=== PATIENT | male | born 1965 | race Caucasian/White ===

== ENCOUNTER → 2019-02-08 | Outpatient (CLI) | payer SELFPAY ==
[~2019-02-08] MED LIST: ASCO500T2 PO; AZEL137S3 NS; AZIT250T6 PO; CALC500T54 PO; COD1CAPS2 PO; DGL; DOCU-109 PO; HYDR-3164 PO; IBUP200C9 PO; METH-38 PO; WHITE WILLOW BARK PO; ZINC30CA PO
[2019-02-08 10:28] LABS: BASO % 0 % (0-3); EOS # 0.1 x10^3/uL (0.0-0.7); EOS % 1 % (0-3); HEMATOCRIT 48.4 % (39.0-53.0); HEMOGLOBIN 16.5 g/dL (13.0-17.5); LYMPH # 1.4 x10^3/uL (1.0-4.8); LYMPH % 13 % (24-48); MEAN CORPUSCULAR HEMOGLOBIN 32 pg (25-35); MEAN CORPUSCULAR HGB CONC 34 g/dL (31-37); MEAN CORPUSCULAR VOLUME 93 fL (79-100); MONO # 0.5 x10^3/uL (0.0-1.1); MONO % 4 % (0-9); NEUT # 8.9 x10^3uL (1.8-7.7); NEUT % 82 % (31-73); PLATELET COUNT 313 x10^3/uL (140-400); RED CELL DISTRIBUTION WIDTH 12.6 % (11.5-14.5); WHITE BLOOD COUNT 10.9 x10^3/uL (4.0-11.0)
[2019-02-08 10:46] LABS: ALBUMIN 4.1 g/dL (3.4-5.0); CALCIUM 9.6 mg/dL (8.5-10.1); CREATININE 0.9 mg/dL (0.7-1.3); POTASSIUM 4.6 mmol/L (3.5-5.1); TOTAL BILIRUBIN 0.4 mg/dL (0.2-1.0); TOTAL PROTEIN 8.4 g/dL (6.4-8.2)
== END | disposition home or self-care (01) ==
LOC: SURGPAT 09:17
PROVIDERS: ATTEND Neurological Surgery
DX: M51.16 Intervertebral disc disorders with radiculopathy, lumbar region (principal); M21.372 Foot drop, left foot
CPT/HCPCS: 36415; 80053; 85025; 87641

== ENCOUNTER 2019-02-23 07:09 | Day surgery (SDC) | payer SELFPAY ==
--- NOTE | 2019-02-22 15:22 | PREOP HP ---
DATE OF SERVICE: 02/23/2019 HISTORY OF PRESENT ILLNESS: The patient is a pleasant 53-year-old who is having difficulty with left buttock and left pain in the hip along with pain which is primarily in his left lateral leg. He notes his left foot is weak. The problem started spontaneously about one month ago. He says if he sits or lies down he has no pain. However, standing or walking for more than about 15 minutes, he develops significant pain and must sit to gain relief. He has been taking Advil. He has chiropractic treatments almost every day, which have helped only temporarily. PAST MEDICAL HISTORY: Headaches, migraines, stomach and intestinal disease, diverticulitis. PAST SURGICAL HISTORY: ACL repair in 1993. FAMILY HISTORY: Cancer, heart problems and disease. SOCIAL HISTORY: Employed as a warehouse production worker. . Exercises daily. Denies substance abuse. Denies alcohol abuse. Drinks alcohol 1-2 times per year. Drinks tea daily. ALLERGIES: No known drug allergies. CURRENT MEDICATIONS: Calcium, magnesium, zinc and vitamin D3, grape seed extract, vitamin C, cod liver oil, white willow bark and Advil. REVIEW OF SYSTEMS: A 12-point review of systems was obtained and is noncontributory except for that mentioned above. PHYSICAL EXAMINATION: NEUROSURGERY EXAMINATION: GENERAL APPEARANCE: Alert, pleasant, no acute distress. HEAD: Normocephalic, atraumatic. SKIN: Warm and dry. MUSCULOSKELETAL: Lumbar paraspinal muscle bulk is normal, restricted range of motion of lumbar spine, [id number] tenderness of lower lumbar spine with palpation, normal range of motion of the lower extremities bilaterally. EXTREMITIES: No clubbing, cyanosis or edema. NEUROLOGIC: Alert and oriented x 3, normal recent and remote memory. Strength 2/5 in bilateral lower extremities, decreased sensation in the anterior lateral leg and dorsum left foot, reflexes are present and symmetric in lower extremities bilaterally, positive straight leg raising on the left, left thigh and leg pain, antalgic gait. IMAGING: I reviewed a lumbar MRI scan. On that study, the principal problems are at L4-L5 where there is a broad-based disk bulging with bilateral neuroforaminal narrowing and lateral recess stenosis. ASSESSMENT: 1. Intervertebral disk disorders with radiculopathy, lumbar region. 2. Footdrop, left foot. PLAN: Clearly, the problems on the left side at L4-L5 are most likely responsible for his pain. I spoke with him about the treatment options. He has had a considerable amount of rest as well as chiropractic treatment on basically a daily basis. He is not able to work because of severe pain. I discussed epidural steroid injections and he has no interest in these. I spoke about the surgery and he would like to go forward with lumbar microsurgery at this time on the left at L4-L5. I explained that in the future he could have problems on the right side as well. He understands the risks. He would like to go ahead. We will make the arrangements. NELLIE DE LEON MD DR: JUSTIN/hermelinda JOB#: [id number] / [id number] FAROOQ
[~2019-02-23] VITALS: Ht 163.8 cm; Wt 82.1 kg
[~2019-02-23 07:09] MED LIST changes: +BACITRACIN 50,000 UNIT in IV NORMAL SALINE 1000ML BAG 1,000 ML IRR ONE; +BUPIVAC MPF-EPI 0.5%-1:200000 30 ML VIAL. ONE; -DOCU-109 PO; +GELATIN SPONGE SIZE 100. ONE; -HYDR-3164 PO; +HYDROmorphone 2 MG/ML VIAL IV PRN; +IV RINGERS,LACTATED 1000ML 1,000 ML IV SCH; +KETOROLAC 60 MG/2 ML INJ FOR OR. ONE; +LIDOCAINE 1% PF 2 ML VIAL. ID PRN; -METH-38 PO; +MORPHINE SULFATE 2 MG/ML VIAL. IV PRN; +PROCHLORPERAZINE 10 MG/2 ML VIAL. IV PRN; +THROMBIN TOPICAL 20,000 UNIT SPRAY.SYRN KIT TP ONE; +fentaNYL PF VIAL 100 MCG/2 ML VIAL IV PRN
[2019-02-23] MEDS ORDERED: ceFAZolin 2GM PREMIX 2 GM/50 ML BAG IV ONE (08:00)
[2019-02-23] MEDS ORDERED: MIDAZOLAM HCL/PF 2 MG/2 ML VIAL. ONE (08:25)
[2019-02-23] MEDS ORDERED: REMIFENTANIL 2 MG VIAL. IV ONE (08:25)
[2019-02-23] MEDS ORDERED: ROCURONIUM 50 MG/5 ML VIAL. ONE (08:25)
[2019-02-23] MEDS ORDERED: LIDOCAINE 2% PF 5 ML VIAL. ONE (08:26)
[2019-02-23] MEDS ORDERED: PROPOFOL 50 ML IV ONE (08:26)
[2019-02-23] MEDS ORDERED: DEXAMETHASONE SOD PHOS 20 MG/5 ML VIAL. ONE (08:26)
[2019-02-23] MEDS ORDERED: PROPOFOL 20 ML IV ONE (08:26)
[2019-02-23] MEDS ORDERED: ONDANSETRON PF 4 MG/2 ML VIAL. ONE (08:26)
[2019-02-23] MEDS ORDERED: fentaNYL PF VIAL 250 MCG/5 ML VIAL ONE (08:26)
[2019-02-23] MEDS ORDERED: DOCU-109 PO (09:28)
[2019-02-23] MEDS ORDERED: METH-38 PO (09:28)
[2019-02-23] MEDS ORDERED: HYDR-3164 PO (09:28)
[2019-02-23] MEDS ORDERED: PHENYLEPHRINE in 0.9% NACL PF 1 MG/10 ML SYRINGE. IV ONE (09:29)
--- NOTE | 2019-02-23 09:29 | DISCH ---
DISCHARGE INSTRUCTIONS Condition on Discharge Condition on Discharge: Stable Activity After Discharge Activity Instructions for Disc: Activity as tolerated, Avoid exertion Other activity instructions: no driving for a week Bathing Instructions: Shower-keep dressing dry Lifting Instructions after Dis: No heavy lifting, No pulling or pushing, Do not lift >10 pounds Diet after Discharge Additional Diet Restrictions: resume home diet Wound Incision Care Wound/Incision Care: Ice to area for comfort Other wound/incision instructi: may remove dressing in 48 hrs if dry then may shower, no soaking Contacting the after DC Call your doctor for: Concerns you may have Follow-Up Follow up with: Dr. De Leon's nurse in 2 weeks [phone] NELLIE DE LEON MD Feb 23, 2019 09:29
[2019-02-23] MEDS ORDERED: GLYCOPYRROLATE 1 MG/5 ML VIAL. ONE (10:38)
[2019-02-23] MEDS ORDERED: NEOSTIGMINE METHYLSULFATE 5 MG/5 ML SYRINGE. ONE (10:38)
[2019-02-23] MEDS ORDERED: DESFLURANE > 120 MINUTES IH ONE (10:49)
[2019-02-23] MEDS ORDERED: HYDROcodone/APAP 5/325MG 1 TAB TABLET PO ONE ×2 (11:30)
[2019-02-23 12:18] VITALS: BP 138/75
--- NOTE | 2019-02-23 12:59 | OP ---
DATE OF SURGERY: 02/23/2019 PREOPERATIVE DIAGNOSES: Stenosis and herniated lumbar disc, L4-L5, left with left lumbar radiculopathy. POSTOPERATIVE DIAGNOSES: Stenosis and herniated lumbar disc, L4-L5, left with left lumbar radiculopathy. OPERATION PERFORMED: Hemilaminotomy and microdiscectomy, L4-L5, left. SURGEON: Joel De Leon M.D. FIREFIGHTING EQUIPMENT SPECIALIST: GEO Schulte, assisted with the surgery. She assisted with the exposure, the microdiscectomy and decompression as well as the closure. OPERATIVE INDICATIONS: The patient is a pleasant 53-year-old man who developed intractable back and left leg pain along with weakness with left foot dorsiflexion, which failed conservative measures. On the imaging studies, he had the above-mentioned findings and I recommended lumbar microsurgery. I spoke with him about the surgery, the risks, technique and the expected postoperative course. The surgery was slightly delayed because of illness, but he presented today, feeling very well and an unchanged, moderately severe left leg pain. I spoke with him about the surgery and the technique and the expected postoperative course and he wished to go ahead. DESCRIPTION OF PROCEDURE: Following general endotracheal anesthesia, the patient was positioned prone on the Espinoza table. Lumbar region was prepped and draped in standard fashion. STUART hose and AV impulse boots were applied for DVT prophylaxis. A microscope was draped. Fluoroscopy was draped and brought into the field. Monitoring was established. Ancef 2 grams was given less than 1 hour prior to initiation of the surgery. Using fluoroscopic guidance, a midline incision was made over the L4-L5 interspace that was taken down to the skin and subcutaneous tissue. I reflected the paraspinal muscles and placed a [place] microdisk retractor. I brought in the microscope and using the high-speed air drill, I burred down a hemilaminotomy and worked to the midline. I then trimmed away very thickened ligamentum flavum. Inferiorly, the ligament was very thick and markedly compressing the nerve at and just below the disc space. I performed a generous partial foraminotomy. I removed the ligament and fully decompressed above and below the disc and then I gently retracted the root medially. There was some pressure . The disc was bulging and I incised the ligament annulus and I performed discectomies, first with the micro pituitaries, followed by the Santino pituitary. On palpating with a blunt hook, there was some subligamentous disc, which I teased up from inferiorly and removed. As I worked, the entire region became very well decompressed. There were moderate degenerative changes within the ligamentum flavum and I removed all of this material and decompressed well. I irrigated copiously with antibiotic solution. I explored carefully. The region was very well decompressed and the root was very free and mobile. I irrigated copiously, obtained perfect hemostasis, removed the retractor, obtained hemostasis of the muscle, irrigated again and then closed the wound in layers with absorbable sutures. The skin was closed with a 4-0 subcuticular stitch. I felt that the surgery went well. JOEL DE LEON MD DR: UJSTIN/hermelinda JOB#: [id number] / [id number] FAROOQ
--- NOTE | 2019-02-26 18:06 | PATHOLOGY ---
[facility] Accession Number: [id number] . 01 Material submitted: . vertebral column - LUMBAR DISC AND DECOMPRESSION . 01 Clinical history: . Foot drop, lumbar herniated disc with radiculopathy . 02 Diagnosis: Segments of fibrocartilaginous, adipose, and skeletal muscle tissue and bone, lumbar disc and decompression: - Degenerative changes of fibrocartilaginous tissue. (JPM:parts professional; 02/26/2019) MBR/02/26/2019 . 02 Comment: There is no evidence of an acute inflammatory process or malignancy. (JPM:parts professional; 02/26/2019) . 02 Electronically signed: . Jimmie Still MD, Pathologist NPI- [id number] . 01 Gross description: . The specimen is received in formalin, labeled "Ronald eCdeno, lumbar disc and decompression", are multiple irregular fragments of coulter-white to pink fibrous tissues admixed with possible bone fragments measuring 2.5 x 2.0 x 0.7 cm in aggregate. Mortgage Loan Processing Clerk tissue is submitted in A1 after decalcification. ([facility]; 02/23/2019) SHS/SHS . 02 Pathologist provided ICD-10: M51.36 . 02 CPT . 387497, [id number] Specimen Comment: A courtesy copy of this report has been sent to Specimen Comment: [phone], . Specimen Comment: Report sent to / DR DISLA Performed at: 01 [facility] [address], [place] [id number] MD Norman Horton MD Phone: [phone] Performed at: 02 [facility] [id number] MD Jimmie Still MD Phone: [phone]
== END 2019-02-23 12:40 | disposition home or self-care (01) ==
LOC: SURG 07:09
PROVIDERS: ATTEND Neurological Surgery
DX: M51.16 Intervertebral disc disorders with radiculopathy, lumbar region (principal); M48.061 Spinal stenosis, lumbar region without neurogenic claudication; G43.909 Migraine, unspecified, not intractable, without status migrainosus; Z87.19 Personal history of other diseases of the digestive system; Z98.890 Other specified postprocedural states; Z82.49 Family history of ischemic heart disease and other diseases of the circulatory system; Z72.89 Other problems related to lifestyle; Z79.899 Other long term (current) drug therapy; M21.372 Foot drop, left foot
CPT/HCPCS: 63030; 88304; 88311; 97162; 97530; A7015; G8978; G8979; G8980; J0696; J1100; J1885; J2001; J2250; J2370; J2405; J2704; J2710; J3010; J3490; J7030; J7120; 76000